=== PATIENT | female | born 1950 | race Caucasian/White ===

== ENCOUNTER 2018-01-05 13:35 | Observation (INO) | payer MEDICARE ==
[~2018-01-05] VITALS: Ht 167.6 cm; Wt 58.1 kg
[~2018-01-05 13:35] MED LIST: LISINOPRIL10 MG PO
[2018-01-05 14:34] LABS: HEMATOCRIT 38.3 % (37.0-47.0); HEMOGLOBIN 13.1 g/dl (12.0-16.0); IMMATURE GRANULOCYTES 0.3 % (0.0-5.0); MEAN CELL VOLUME 94.8 fL CALC (80.0-100.0); MEAN CORPUSCULAR HGB 32.4 pG CALC (26.0-32.0); MEAN CORPUSCULAR HGB CONC 34.2 g/L CALC (32.0-36.0); NEUT# 3.99 thou/uL (2.00-7.15); RED BLOOD COUNT 4.04 mill/uL (4.20-5.60); RED CELL DISTRI WIDTH 11.9 % (11.5-15.5)
[2018-01-05 15:54] LABS: ANION GAP 14 (6-22 (CALC)); BUN 18 mg/dL (8-23); BUN/CREATININE RATIO 30 (12-20 (CALC)); CARBON DIOXIDE 29 mmol/l (22-30); CHLORIDE 101 mmol/l (95-108); CREATININE 0.6 mg/dL (0.5-1.0); GFR > 60 ML/MIN (>=60 (CALC)); GFR FOR AFR.AMER. > 60 ML/MIN (>=60 (CALC)); POTASSIUM 4.3 mmol/l (3.5-5.1); SODIUM 140 mmol/l (137-146)
[2018-01-05 19:20] VITALS: BP 195/97
[2018-01-05 20:55] VITALS: BP 154/81
[2018-01-06] VITALS (7 sets, daily range): BP systolic 142–177; BP diastolic 75–89
[2018-01-06 07:33] LABS: URINE BILIRUBIN - DIPSTICK NEGATIVE (NEGATIVE); URINE BLOOD DIPSTICK SMALL (NEGATIVE); URINE COLOR YELLOW; URINE GLUCOSE - DIPSTICK NEGATIVE (NEGATIVE); URINE KETONE NEGATIVE (NEGATIVE); URINE LEUK ESTERASE NEGATIVE (NEGATIVE); URINE NITRITE - DIPSTICK NEGATIVE (Negative); URINE PROTEIN - DIPSTICK NEGATIVE (NEG-TRACE); URINE SPECIFIC GRAVITY <=1.005; URINE UROBILINOGEN - DIPSTICK 0.2 E.U./dL (0.2)
[2018-01-06 07:35] LABS: URINE CLARITY CLEAR
[2018-01-06 07:45] LABS: URINE WBC 0-2 WBC/hpf (0-5)
[2018-01-06 07:47] LABS: URINE SQUAMOUS EPITHELIAL CELL FEW EPI/hpf (0-FEW)
[2018-01-06 07:48] LABS: URINE BACTERIA RARE hpf
[2018-01-06] MEDS ORDERED: HYDRALAZINE25 MG PO (12:35)
== END 2018-01-06 12:50 | disposition home or self-care (01) ==
LOC: ED 13:35 → ED-I 17:25 → ED 17:36 → MS2 17:37
PROVIDERS: Family Medicine; ADMIT General Practice; ATTEND General Practice
DX: R55 Syncope and collapse (principal); I10 Essential (primary) hypertension